=== PATIENT | female | born 1985 | race Caucasian/White ===

== ENCOUNTER 2019-02-23 16:18 | Emergency (ER) | payer SELFPAY ==
[~2019-02-23] VITALS: Ht 160 cm; Wt 67.6 kg
[2019-02-23 16:22] VITALS: BP 135/72; Ht 160 cm; Wt 67.6 kg
[2019-02-23 17:58] LABS: BASOPHIL % 0.5 % (0-2); PLATELET COUNT 226 x10^3mcL (130-400); RED CELL DISTRIBUTION WIDTH 13.6 % (11.5-14.5)
== END 2019-02-23 19:04 | disposition home or self-care (01) ==
LOC: ED 16:18
PROVIDERS: Emergency Medicine
DX: N93.8 Other specified abnormal uterine and vaginal bleeding (principal)
CPT/HCPCS: 36415